=== PATIENT | female | born 1985 | race Caucasian/White ===

== ENCOUNTER 2016-06-01 12:28 | Inpatient (IN) | payer BC, OTHER ==
[2016-06-01] VITALS (35 sets, daily range): BP systolic 125–170; BP diastolic 55–133; PULSE 79–133; RESP 18; TEMP 97.5–97.9
[~2016-06-01] VITALS: Ht 172.7 cm; Wt 111.1 kg
[2016-06-01] MEDS ORDERED: LACTATED RINGER'S 1000 ML INJ 1,000 ML IV SCH (13:00)
[2016-06-01] MEDS ORDERED: LIDOCAINE HCL 1% 50 ML VIAL I-DERMAL PRN (13:00)
[2016-06-01] MEDS ORDERED: MINERAL OIL 10 ML VIAL TOPICAL PRN (13:00)
[2016-06-01] MEDS ORDERED: SODIUM CHLORID 0.9% 500 ML INJ 500 ML IV PRN (13:00)
[2016-06-01] MEDS ORDERED: LIDOCAINE HCL 1% 50 ML VIAL INFIL PRN (13:00)
[2016-06-01] MEDS ORDERED: OXYTOCIN 30 UNITS-500ML PREMIX 500 ML IV ONE (13:00)
[2016-06-01] MEDS ORDERED: CITRIC ACID-SODIUM CITRATE LIQ 30 ML UDC PO SCH (13:00)
[2016-06-01] MEDS ORDERED: LACTATED RINGER'S 1000 ML INJ 1,000 ML IV PRN (13:00)
--- NOTE | 2016-06-01 13:00 | PD ---
HPI Chief Complaint Contractions Date Seen: Jun 01, 2016 Travel History International Travel<30 Days: No Contact w/Intl Traveler<30Days: No Known Affected Area: No History of Present Illness HPI 31-year-old female at 39 weeks gestation here for contractions that began about an hour ago. Patient states that she is group B strep negative and otherwise has an uncomplicated course. 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 3 oz. Past Surgical History Surgical History: No Previous Surgery Family History Family History: Negative Social History Alcohol Use: No Tobacco Use: No Substance Abuse: No Allergies-Medications (Allergen,Severity, Reaction): Coded Allergies: No Known Allergies (Verified Allergy, Severe, 04/30/06) Review of Systems Except as stated in HPI: all other systems reviewed are Neg Physical Exam Narrative GENERAL: Well-nourished, well-developed patient. SKIN: Warm and dry. HEAD: Normocephalic and atraumatic. EYES: No scleral icterus. No injection or drainage. ENT: No nasal drainage noted. Mucous membranes pink. Airway patent. NECK: Supple, trachea midline. No JVD. CARDIOVASCULAR: Regular rate and rhythm without murmurs, gallops, or rubs. RESPIRATORY: Breath sounds equal bilaterally. No accessory muscle use. BREASTS: Bilateral exam showed no masses , no retractions, no nipple discharge. ABDOMEN/GI: Abdomen soft, non-tender, bowel sounds present, no rebound, no guarding Gravid to [-] weeks size Fundal Height: [40-] GENITOURINARY: External Genitalia: intact and normal in appearance BUS glands: [Normal examination was done carefully and there was no signs of any lesions at this time-] Cervix: [Mid position-] Dilatation: 8-9 Effacement: 90 Station: -1 Presentation: Vertex Membranes: Intact Uterine Contractions: [-Every 5] FHT's: Category: [-1] Baseline: 140 Reactive: Moderate Variability: Moderate Decels: Absent EXTREMITIES: No cyanosis or edema. BACK: Nontender without obvious deformity. No CVA tenderness. NEUROLOGICAL: Awake and alert. Motor and sensory grossly within normal limits. Five out of 5 muscle strength in all muscle groups. Normal speech. Data Data Vital Signs Reviewed: Yes Orders Ob (2e) Additional Admit Info (06/01/16 12:49) [facility] Medical Record Reviewed: Yes Plan 31-year-old at 39 weeks gestation in active labor Plan admission, Dr. Osorio was notified History of macrosomic child delivered without problems or dystocia GBS negative Diagnosis Diagnosis: Primary Impression: 39 weeks gestation of Additional Impressions: Irregular uterine contractions History of macrosomia in infant in prior , currently Medina Bradford MD Jun 01, 2016 13:00
[2016-06-01 13:09] LABS: AUTOMATED NEUTROPHIL # 10.6 TH/MM3 (1.8-7.7); BASOPHIL # 0.1 TH/MM3 (0-0.2); BASOPHIL % 0.5 % (0.0-2.0); EOSINOPHIL % 0.3 % (0.0-4.0); HEMATOCRIT 40.2 % (35.0-46.0); HEMO FLAGS DIFF FINAL; LYMPH % 12.2 % (9.0-44.0); LYMPHOCYTE # 1.6 TH/MM3 (1.0-4.8); MEAN CELL VOLUME 86.8 FL (80.0-100.0); MEAN CORPUSCULAR HEMOGLOBIN 30.1 PG (27.0-34.0); MEAN CORPUSCULAR HGB CONC 34.6 % (32.0-36.0); MONO % 6.9 % (0.0-8.0); NEUT % 80.1 % (16.0-70.0); PLATELET COUNT 235 TH/MM3 (150-450); RED BLOOD COUNT 4.63 MIL/MM3 (4.00-5.30); WHITE BLOOD COUNT 13.2 TH/MM3 (4.0-11.0)
[2016-06-01] MEDS ORDERED: fentaNYL 2MCG-BUPIV 0.125% INJ 100 ML ONE (13:17)
[2016-06-01] MEDS ORDERED: BUPIVACAINE HCL PF 0.25% 10 ML VIAL ONE (13:18)
[2016-06-01] MEDS ORDERED: SODIUM CHLOR 0.9% 1000 ML INJ 1,000 ML IV PRN (13:20)
--- NOTE | 2016-06-01 14:41 | PD.OB.DELI ---
Delivery Date: Jun 01, 2016 Anesthesia: Epidural Episiotomy: None Vaginal Delivery: Normal Presentation: Vertex Nuchal Cord: None Delayed cord clamping (45 sec): Yes : Male One Minute : 9 Five Minute : 9 Weight: 8#14oz Placenta: Spontaneous delivery Laceration: Perineal laceration, 2 deg Repair: Chromic running (3-0) Additional Information EBL 100 mL healthy male "Mikki Jeff MD Jun 01, 2016 14:41
--- NOTE | 2016-06-01 14:42 | HHI.DCPOC ---
Discharge Care Plan Diagnosis: (1) (spontaneous vaginal delivery) Your Health Problems Are: Vaginal delivery Report Symptoms to Your Doctor -Temperate above 100.5 degrees -Redness, of incision or excessive or foul smelling drainage -Unusual pain or calf pain -Increased vaginal bleeding -Painful or difficulty urinating -Feelings of extreme sadness or anxiety after 2 weeks Goals to Promote Your Health * To prevent worsening of your condition and complications * To maintain your health at the optimal level Directions to Meet Your Goals Take your medications as prescribed Follow your dietary instruction Follow activity as directed Ensure plenty of rest for recovery Drink fluids for hydration Keep your appointments as scheduled Take your immunizations and boosters as scheduled If your symptoms worsen call your PCP, if no PCP go to Urgent Care Center or Emergency Room Smoking is Dangerous to Your Health. Avoid second hand smoke Call the 24-hour crisis hotline for domestic abuse at Mikki Osorio MD Jun 01, 2016 14:42
[2016-06-01] MEDS ORDERED: ACETAMINOPHEN 325 MG TAB PO PRN (14:45)
[2016-06-01] MEDS ORDERED: BENZOCAINE 20% TOPICAL SPRAY 60 ML CAN TOPICAL PRN (14:45)
[2016-06-01] MEDS ORDERED: SODIUM CHLORIDE 0.9% FLUSH 10 ML FLUSH IV FLUSH PRN (14:45)
[2016-06-01] MEDS ORDERED: DOCUSATE SODIUM 50 MG/SENNA 8.6 MG TAB PO PRN (14:45)
[2016-06-01] MEDS ORDERED: oxyCODONE/ACETAMINOPHEN 5 MG/325 MG TAB PO PRN ×2 (14:45)
[2016-06-01] MEDS ORDERED: ALUMINUM/MAGNESIUM/SIMETH 30 ML CUP PO PRN (14:45)
[2016-06-01] MEDS ORDERED: ZOLPIDEM TARTRATE 5 MG TAB PO PRN (14:45)
[2016-06-01] MEDS ORDERED: ONDANSETRON ODT 4 MG TAB PO PRN (14:45)
[2016-06-01] MEDS ORDERED: MEASLES, MUMPS, RUBELLA VACCINE 0.5 ML VIAL SQ ONE (16:00)
[2016-06-01] MEDS ORDERED: DIPHTH/TETANUS/ACEL PERTUSSIS (BOOSTER) 0.5 ML VIAL/PFS IM ONE (16:00)
[2016-06-01 16:25] LABS: BLOOD, URINE NEG (NEG); GLUCOSE,URINE NEG (NEG); KETONE, URINE 10 mg/dL (NEG); MUCUS URINE FEW /lpf (OCC); NITRITE,URINE NEG (NEG); PH, URINE 6.5 (5.0-8.5); SQUAMOUS EPITHELIAL CELL URINE 1 /hpf (0-5); URINE COLOR YELLOW (YELLW/STRAW)
[2016-06-01 16:26] LABS: COMMENT (UR) CULT NOT INDICATED; CULTURE IF INDICATED CULT NOT INDICATED
[2016-06-01] MEDS: WITCH HAZEL 50%/GLYCERIN 12.5% 40 PAD JAR TOPICAL PRN (17:53)
[2016-06-02] MEDS: IBUPROFEN 600 MG TAB PO PRN ×2 (05:56→16:55)
--- NOTE | 2016-06-02 06:41 | HHI.OB ---
Subjective Post Day: 1 Remarks doing well, desires circ Objective Vitals/I&O Vital Signs Date Time Temp Pulse Resp B/P Pulse Ox O2 Delivery O2 Flow Rate FiO2 06/01/16 18:50 97.9 06/01/16 18:50 84 18 125/77 06/01/16 15:25 85 133/68 06/01/16 15:10 97.5 06/01/16 15:10 79 129/69 06/01/16 14:55 18 06/01/16 14:46 85 144/64 06/01/16 14:31 100 148/77 06/01/16 14:16 100 141/55 06/01/16 14:10 98 152/80 06/01/16 14:07 133 150/82 06/01/16 14:05 116 06/01/16 14:04 123 170/97 06/01/16 14:01 106 164/95 06/01/16 14:00 111 06/01/16 13:58 113 167/94 06/01/16 13:55 110 152/133 06/01/16 13:55 105 06/01/16 13:52 100 152/90 06/01/16 13:50 99 06/01/16 13:49 102 165/82 06/01/16 13:46 103 147/66 06/01/16 13:45 100 06/01/16 13:43 94 145/78 06/01/16 13:40 115 163/93 06/01/16 13:40 113 06/01/16 13:37 117 142/79 06/01/16 13:35 104 06/01/16 13:34 105 146/91 06/01/16 13:31 101 151/87 06/01/16 13:30 110 06/01/16 13:28 111 150/97 06/01/16 13:24 109 167/95 06/01/16 13:21 99 164/86 06/01/16 13:20 104 06/01/16 13:19 104 156/79 06/01/16 13:17 108 169/97 06/01/16 13:00 18 06/01/16 12:54 107 159/101 Objective Remarks GENERAL: Well-nourished, well-developed patient. CARDIOVASCULAR: Regular rate and rhythm without murmurs, gallops, or rubs. RESPIRATORY: Breath sounds equal bilaterally. No accessory muscle use. ABDOMEN/GI: Abdomen soft, non-tender. Fundus: Firm, non-tender at umbilicus. GENITOURINARY: Light to moderate bleeding. EXTREMITIES: No cyanosis or edema, non-tender, without signs of DVT. Medications and IVs Current Medications Medications (Trade) Dose Ordered Sig/Van Route Start Time Stop Time Status Last Admin Lactated Ringer's 1,000 ml @ 125 mls/hr Q8H IV 06/01/16 13:00 Lactated Ringer's 1,000 ml @ 3,000 mls/hr Q20M PRN IV 06/01/16 13:00 06/01/16 14:24 Sodium Chloride 500 ml @ 1,000 mls/hr ONCE PRN IV 06/01/16 13:00 (NS 1000 ml Inj) 1,000 ml @ 100 mls/hr Q10H PRN IV 06/01/16 13:20 (fentaNYL INJ) 50 mcg Q1H PRN IV PUSH 06/01/16 13:00 (fentaNYL INJ) 100 mcg Q1H PRN IV PUSH 06/01/16 13:00 06/01/16 14:23 (Muri-Lube Oil) 10 ml UNSCH PRN TOPICAL 06/01/16 13:00 (NS Flush) 2 ml BID IV FLUSH 06/01/16 21:00 (NS Flush) 2 ml UNSCH PRN IV FLUSH 06/01/16 14:45 (Tylenol) 650 mg Q4H PRN PO 06/01/16 14:45 (Motrin) 600 mg Q6H PRN PO 06/01/16 14:45 06/02/16 05:56 (Percocet 5-325 Mg) 1 tab Q4H PRN PO 06/01/16 14:45 (Percocet 5-325 Mg) 2 tab Q4H PRN PO 06/01/16 14:45 (Americaine 20% Top Spr) 1 spray Q4H PRN TOPICAL 06/01/16 14:45 06/01/16 17:53 (Tucks Pads) 1 applic QID PRN TOPICAL 06/01/16 14:45 06/01/16 17:53 (Stephanie-Colace) 2 tab Q12H PRN PO 06/01/16 14:45 (Ambien) 5 mg HS PRN PO 06/01/16 14:45 (Mag-Al Plus Susp Liq) 15 ml Q8H PRN PO 06/01/16 14:45 (Zofran Odt) 4 mg Q6H PRN PO 06/01/16 14:45 Assessment/Plan Problem List: (1) (spontaneous vaginal delivery) Assessment and Plan ppd 1 cont routine care dispo home ppd 2 Olivia Cash MD Jun 02, 2016 06:40
[2016-06-02] MEDS: SODIUM CHLORIDE 0.9% FLUSH 10 ML FLUSH IV FLUSH SCH (09:00)
[2016-06-02 09:20] VITALS: BP 132/91; PULSE 74; RESP 24; TEMP 98.3
[2016-06-02 21:50] VITALS: BP 148/87; PULSE 87; RESP 18; TEMP 98
[2016-06-03] MEDS: IBUPROFEN 600 MG TAB PO PRN ×2 (00:24→12:22)
[2016-06-03 07:50] VITALS: BP 120/79; PULSE 75; RESP 16; TEMP 98.3
[2016-06-03] MEDS: SODIUM CHLORIDE 0.9% FLUSH 10 ML FLUSH IV FLUSH SCH (09:00)
--- NOTE | 2016-06-03 12:44 | HHI.OB ---
Subjective Post Day: 2 Remarks PPD#2, Stable,no c/o Objective Vitals/I&O Vital Signs Date Time Temp Pulse Resp B/P Pulse Ox O2 Delivery O2 Flow Rate FiO2 06/03/16 07:50 98.3 75 16 120/79 06/03/16 01:24 18 06/02/16 21:50 98.0 87 18 148/87 Objective Remarks GENERAL: Well-nourished, well-developed patient. CARDIOVASCULAR: Regular rate and rhythm without murmurs, gallops, or rubs. RESPIRATORY: Breath sounds equal bilaterally. No accessory muscle use. ABDOMEN/GI: Abdomen soft, non-tender. Fundus: Firm, non-tender at umbilicus. GENITOURINARY: Light to moderate bleeding. EXTREMITIES: No cyanosis or edema, non-tender, without signs of DVT. Medications and IVs Current Medications Medications (Trade) Dose Ordered Sig/Van Route Start Time Stop Time Status Last Admin Lactated Ringer's 1,000 ml @ 125 mls/hr Q8H IV 06/01/16 13:00 Lactated Ringer's 1,000 ml @ 3,000 mls/hr Q20M PRN IV 06/01/16 13:00 06/01/16 14:24 Sodium Chloride 500 ml @ 1,000 mls/hr ONCE PRN IV 06/01/16 13:00 (NS 1000 ml Inj) 1,000 ml @ 100 mls/hr Q10H PRN IV 06/01/16 13:20 (fentaNYL INJ) 50 mcg Q1H PRN IV PUSH 06/01/16 13:00 (fentaNYL INJ) 100 mcg Q1H PRN IV PUSH 06/01/16 13:00 06/01/16 14:23 (Muri-Lube Oil) 10 ml UNSCH PRN TOPICAL 06/01/16 13:00 (NS Flush) 2 ml BID IV FLUSH 06/01/16 21:00 (NS Flush) 2 ml UNSCH PRN IV FLUSH 06/01/16 14:45 (Tylenol) 650 mg Q4H PRN PO 06/01/16 14:45 (Motrin) 600 mg Q6H PRN PO 06/01/16 14:45 06/03/16 12:22 (Percocet 5-325 Mg) 1 tab Q4H PRN PO 06/01/16 14:45 (Percocet 5-325 Mg) 2 tab Q4H PRN PO 06/01/16 14:45 (Americaine 20% Top Spr) 1 spray Q4H PRN TOPICAL 06/01/16 14:45 06/01/16 17:53 (Tucks Pads) 1 applic QID PRN TOPICAL 06/01/16 14:45 06/01/16 17:53 (Stephanie-Colace) 2 tab Q12H PRN PO 06/01/16 14:45 06/02/16 16:55 (Ambien) 5 mg HS PRN PO 06/01/16 14:45 (Mag-Al Plus Susp Liq) 15 ml Q8H PRN PO 06/01/16 14:45 (Zofran Odt) 4 mg Q6H PRN PO 06/01/16 14:45 Assessment/Plan Problem List: (1) (spontaneous vaginal delivery) Assessment and Plan ppd 2 cont routine care dispo home today Popeye Miranda MD Jun 03, 2016 12:44
[2016-06-03] MEDS: WITCH HAZEL 50%/GLYCERIN 12.5% 40 PAD JAR TOPICAL PRN (14:55)
== END 2016-06-03 15:18 | disposition home or self-care (01) | DRG 775 ==
LOC: HOBED 12:28 → H2EA 12:54 → H1EA 16:08
PROVIDERS: ADMIT Obstetrics & Gynecology; ATTEND Obstetrics & Gynecology
PROC: 0KQM0ZZ Repair Perineum Muscle, Open Approach (ICD-10-PCS; principal; 2016-06-01)
PROC: 10E0XZZ Delivery of Products of Conception, External Approach (ICD-10-PCS; 2016-06-01)
PROC: 3E0R3CZ (ICD-10-PCS; 2016-06-01)
PROC: 00HU33Z Insertion of Infusion Device into Spinal Canal, Percutaneous Approach (ICD-10-PCS; 2016-06-01)
DX: O70.1 Second degree perineal laceration during delivery (principal); Z37.0 Single live birth; O36.60X0 Maternal care for excessive fetal growth, unspecified trimester, not applicable or unspecified; Z3A.39 39 weeks gestation of pregnancy
CPT/HCPCS: 59025; 81001; 85025; 86900; 86901; 99285; J2590; J3010; J7120